=== PATIENT | female | born 1955 | race Caucasian/White ===

== ENCOUNTER 2019-05-26 12:51 | Outpatient (CLI) | payer MEDICARE, SELFPAY ==
--- NOTE | 2019-05-26 12:59 | MR_ITS ---
WS: [id number] MRI HEAD WITHOUT CONTRAST WITH ATTENTION TO THE INTERNAL AUDITORY CANALS TECHNIQUE: Sagittal T1, T2 axial, T2 axial flair, axial susceptibility weighted imaging, axial diffus ion weighted images, and coronal T2 images were obtained. Pre and post T1 axial and post T1 coronal i mages. ADC and FSPGR images. Post gadolinium images with attention to the internal auditory canals. A xial fiesta imaging. Gadolinium was not administered due to inability to obtain IV access despite mul tiple attempts. CLINICAL INFORMATION: SENSORINEURAL HEARING LOSS COMPARISON: None. FINDINGS: No evidence of restricted diffusion to suggest acute ischemia. Ventricular system and basal cisterns are patent. Minimal small vessel changes. Moderate parenchymal volume loss. Normal posterior fossa. N ormal vascular flow voids at the skull base. No extra-axial fluid collections. No evidence of mass or mass effect. Paranasal sinuses and mastoid air cells are well aerated. No hemosiderin on the susceptibly weighted images. Proximal 7th and 8th cranial nerves are normal in appearance. Normal trigeminal nerve root entry zones. No evidence of CP angle mass. Mild symmetric at rophy involving the temporal lobes and hippocampal formations. MR/MR iac's wo con [id number] IMPRESSION: 1. No evidence of restricted diffusion to suggest acute ischemia. 2. Proximal 7th and 8th cranial nerves are normal in appearance. No evidence o f IAC or CP angle mass. 3. Mastoid air cells well aerated bilaterally. Paranasal sinuses are well aera jory. 4. Minimal small vessel changes with moderate parenchymal volume loss. 5. No hemosiderin on the susceptibility weighted images. 6. Gadolinium was not administered due to inability to obtain IV access.
== END 2019-05-26 12:52 | disposition home or self-care (01) ==
LOC: RADWPI 12:53
PROVIDERS: Family Provider Family Medicine; PCP Family Medicine; Visit Provider Specialist
DX: H90.3 Sensorineural hearing loss, bilateral (principal)
CPT/HCPCS: 70551

== ENCOUNTER 2022-11-20 10:45 | Outpatient (CLI) | payer MEDICARE, SELFPAY ==
--- NOTE | 2022-11-20 10:59 | USCV_ITS ---
Cathie Winslow Age: 67 Gender: F : 1955 Exam Date: 11/20/2022 11:20 Ordering Phys: Carmen Velez Technologist: CT Exam Location: [facility] – [place]_ Indication: PROCEDURES: Venous duplex imaging was performed in only the right lower extremity. The following venous structures were evaluated: common femoral vein, profunda vein, proximal portion of the greater saphenous vein, superficial femoral vein, and the popliteal vein. In addition, the posterior tibial and peroneal trunk were evaluated. FINDINGS: Normal 2-D Doppler and augmentation and compressibility throughout the lower extremity venous structures. Additional imaging through the proximal calf veins also reveals no thrombus. Limited evaluation of the greater saphenous vein is patent with no thrombus. CONCLUSIONS No DVT right lower extremity. Dr. Danielle Lynch DO (Electronically Signed) Final Date: 20 November 2022 12:20 S
== END 2022-11-20 10:46 | disposition home or self-care (01) ==
PROVIDERS: Family Provider Family Medicine; PCP Family Medicine; Visit Provider Nurse Practitioner Family
DX: M79.89 Other specified soft tissue disorders (principal)
CPT/HCPCS: 93971

== ENCOUNTER 2022-12-06 13:25 | Emergency (ER) | payer MEDICARE, SELFPAY ==
[2022-12-06 13:38] VITALS: BP 121/80; PULSE 77; RESP 18; TEMP 36.6; O2SAT 97; BMI 22.6
[2022-12-06 14:16] VITALS: BP 118/84; PULSE 69; RESP 18; O2SAT 99
--- NOTE | 2022-12-06 14:16 | XRR_ITS ---
PROCEDURE INFORMATION: Exam: XR Right Knee Exam date and time: 12/06/2022 2:40 PM Age: 67 years old Clinical indication: Right; Patient HX: RT knee pain x 1 mo; Worsening today; Limited rom TECHNIQUE: Imaging protocol: Radiologic exam of the right knee. Views: 1 or 2 views. COMPARISON: No relevant prior studies available. FINDINGS: Bones/joints: Visualized osseous structures are intact. Negative for fracture. Joint spaces are preserved. Soft tissues: Normal. XR/XR knee RT 1-2V [id number] IMPRESSION: No acute findings.
--- NOTE | 2022-12-06 14:19 | ED_ITS ---
HPI - Extremity Problem General: Chief complaint: Extremity Problem,Nontraumatic Stated complaint: right leg pain Time Seen by Provider: 12/06/22 14:02 History of Present Illness: 67-year-old female with history of tobacco abuse presents emergency room with. Patient was seen and evaluated for similar complaint by her primary physician and ultrasound was ordered. Patient had a negative ultrasound on 20 November. She described the pain as aching sensation mostly around the medial aspect of her knee radiating to the groin area. Patient has any numbness, tingling, trauma or recent injury. No shortness of breath, cough, coughing up blood or vomiting blood. Review of Systems General: Reports: 10 or more systems reviewed and unremarkable except in HPI and below : Denies: flank pain, difficulty voiding, dysuria, urinary frequency, urinary urgency or urinary hesitancy Musc: Reports: joint pain and other (Right leg pain); Denies: muscle weakness, loss of height or deformity Physical Exam HENMT: COMMON NORMALS: normocephalic, atraumatic, hearing grossly normal bilaterally, external ears normal, EAC's normal, TM's normal bilaterally, Normal external nose present, Normal nasal mucous membranes and turbinates present, moist oral mucous membranes, oropharynx normal, dentition normal and gingiva normal HEAD & SCALP: normocephalic and atraumatic NOSE: Normal external nose present and Normal nasal mucous membranes and turbinates present EXTERNAL EAR: Yes external ears normal EXTERNAL AUDITORY CANAL: EAC's normal TYMPANIC MEMBRANE: TM's normal bilaterally Neck/C-Spine: COMMON NORMALS: no JVD Chest: COMMONS NORMALS: normal inspection of the chest, normal palpation of entire chest wall, normal inspection of the breasts and normal palpation of the breasts Breast/axilla inspection: Yes normal inspection of the breasts BREAST/AXILLA PALPATION: Yes normal palpation of the breasts Resp: COMMON NORMALS: normal respiratory effort, No retractions, No use of accessory muscles, clear to auscultation bilaterally and percussion normal AUSCULTATION: clear to auscultation bilaterally PERCUSSION: percussion normal Cardio: COMMON NORMALS: no JVD, regular rate, regular rhythm, S1 normal heart sound present, S2 normal heart sound present, No gallops present (Cardio), No clicks present (Cardio), No murmurs present (Cardio), No rub (Cardio) and Peripheral pulses 2+ throughout RATE: regular rate RHYTHM: regular rhythm HEART SOUNDS: S1 normal heart sound present and S2 normal heart sound present PERIPHERAL PULSES: Peripheral pulses 2+ throughout Extremity: OTHER: Right leg with palpable pulse throughout. No calf swelling, tenderness, cord palpation. Patient was moderate tenderness on the medial aspect of the right knee upon palpation. Pain with range of motion. No signs of vascular compromise patient at this time. Course Vital Signs: Vital signs: Vital Signs Temperature 97.8 F 12/06/22 15:23 Pulse Rate 69 12/06/22 15:23 Respiratory Rate 18 12/06/22 15:23 Blood Pressure 118/84 12/06/22 15:23 Pulse Oximetry 99 12/06/22 15:23 Oxygen Delivery Me thod Room Air 12/06/22 14:16 MDM - Extremity (Nontraumatic) Medical Decision Making Patient made comfortable emergency room I was able to review ultrasound that was done on 20 November. X-ray was done no acute findings on the x-ray. I discusse d the x-ray finding with the patient and family. I did recommend outpatient follow-up for more vascular studies. Again patient continues to have strong palpable pulse. Differential Diagnosis Likely gout, cellulitis, superficial thrombophlebitis, deep venous thrombosis of upper extremity, lower extremity edema and deep vein thrombosis of lower extremity Lab Data Radiology Impressions Knee X-Ray 12/06/22 14:16 IMPRESSION: No acute findings. XR interpretation done by ED provider, pending radiology final review Discharge Plan Discharge Patient Disposition: Home Clinical Impression: Leg pain, Myalgia Condition: Stable Prescriptions: New tramadol 50 mg tablet 50 mg PO Q12H PRN (Reason: pain) Qty: 20 0RF No Action fluticasone propion-salmeterol 250-50 mcg/dose blister with device 1 inh INHALATION BID famotidine 40 mg tablet 40 mg PO BID ropinirole 3 mg tablet 3 mg PO BEDTIME levothyroxine 50 mcg tablet 50 mcg PO QAM pantoprazole 40 mg tablet,delayed release (DR/EC) 40 mg PO DAILY PRN (Reason: Acid Reflux) hydrochlorothiazide 12.5 mg capsule 12.5 mg PO DAILY gabapentin 300 mg capsule 300 mg PO TID oxycodone-acetaminophen 7.5-325 mg tablet 1 tab PO Q6H PRN (Reason: Pain) ondansetron 4 mg tablet,disintegrating 4 mg PO Q8H PRN (Reason: Nausea) GaviLyte-G [id number] -5.86 gram recon soln See Rx Instructions .ROUTE .COMPLEX Rx Instructions: as directed Discharge Orders: Discharge ED (Routine); Ordered 12/06/22 Ordered By: Aline Bear Referrals: Gregory Paul [Primary Care Provider] - Discharge Diet: Advance as tolerated Discharge Activity: Resume usual activity Patient Instructions: Opioid Safety, Pain Management Coding Level of Care Code ED Contact Center Specialist for Jose Turpin
[2022-12-06] MEDS: TRAMadol 50 mg Tablet PO (14:43)
[2022-12-06 15:23] VITALS: BP 118/84; PULSE 69; RESP 18; TEMP 36.6; O2SAT 99
== END 2022-12-06 15:31 | disposition home or self-care (01) ==
PROVIDERS: Emergency Provider Family Medicine; PCP Family Medicine
DX: M79.604 Pain in right leg (principal); M79.10 Myalgia, unspecified site
CPT/HCPCS: 73560; 99283

== ENCOUNTER → 2024-11-29 09:28 | Outpatient (BNVA) | payer MEDICARE, SELFPAY | PROVIDERS: PCP Family Medicine; Visit Provider Podiatrist Foot & Ankle Surgery | DX: M21.611 Bunion of right foot (principal); M21.612 Bunion of left foot; M20.12 Hallux valgus (acquired), left foot; M77.41 Metatarsalgia, right foot | CPT/HCPCS: 73630; 99204 ==